=== PATIENT | female | born 1950 | race Caucasian/White ===

== ENCOUNTER → 2019-04-05 | Outpatient (CLI) | payer MEDICARE, OTHER ==
[~2019-04-05] MED LIST: ATOR-2 PO; CALC-229 PO; CHOL200074 PO; ESOM20CA PO; LEVO75TA PO; LOSA1TAB19 PO; LOSA25TA25 PO; NITR100C56 PO
== END | disposition home or self-care (01) ==
LOC: CFH 12:27
PROVIDERS: ATTEND Nurse Practitioner Family
DX: M85.89 Other specified disorders of bone density and structure, multiple sites (principal); I65.23 Occlusion and stenosis of bilateral carotid arteries; N95.9 Unspecified menopausal and perimenopausal disorder; I10 Essential (primary) hypertension; F17.200 Nicotine dependence, unspecified, uncomplicated
CPT/HCPCS: 77080; 93880

== ENCOUNTER 2019-05-19 11:39 | Outpatient (CLI) | payer MEDICARE ==
[2019-05-19] MEDS ORDERED: OMNIPAQUE 350 MG/ML, 100ML BOTTLE ONE (14:35)
== END 2019-05-19 23:59 | disposition home or self-care (01) ==
LOC: CFH 11:39
PROVIDERS: ATTEND Genetic Counselor, MS
DX: R93.89 Abnormal findings on diagnostic imaging of other specified body structures (principal); I65.21 Occlusion and stenosis of right carotid artery; I65.01 Occlusion and stenosis of right vertebral artery; I65.23 Occlusion and stenosis of bilateral carotid arteries; I70.0 Atherosclerosis of aorta
CPT/HCPCS: 70498; Q9967

== ENCOUNTER → 2020-01-11 | Outpatient (CLI) | payer MEDICARE | END | disposition home or self-care (01) | LOC: CFH 10:46 | PROVIDERS: ATTEND Genetic Counselor, MS | DX: Z12.31 Encounter for screening mammogram for malignant neoplasm of breast (principal) | CPT/HCPCS: 77063; 77067 ==